=== PATIENT | female | born 1970 | race Caucasian/White ===

== ENCOUNTER 2023-09-08 14:15 | Emergency (ER) | payer OTHER ==
[2023-09-08 14:38] VITALS: BP 134/68; PULSE 93
[2023-09-08] MEDS: Acetaminophen/HYDROcodone 325-5 MG Tab PO ONE (14:39)
[2023-09-08] MEDS ORDERED: Lidocaine 2% 10 ML Amp INJECT ONE (14:47)
[2023-09-08] MEDS: ceFAZolin 1 GM Vial IM ONE (14:52)
[2023-09-08] MEDS: Lidocaine 1% 10 ML MDV INJECT ONE (14:52)
[2023-09-08] MEDS: Diphtheria,Pertussis(Acell),Tetanus Vaccine 0.5 ML Syringe IM ONE (15:48)
== END 2023-09-08 15:50 | disposition home or self-care (01) ==
LOC: VM.ED 14:15
DX: S62.634B Displaced fracture of distal phalanx of right ring finger, initial encounter for open fracture (principal); S80.211A Abrasion, right knee, initial encounter; K21.9 Gastro-esophageal reflux disease without esophagitis; Z23 Encounter for immunization; Z90.49 Acquired absence of other specified parts of digestive tract; Z79.899 Other long term (current) drug therapy; Z88.6 Allergy status to analgesic agent; Z91.048 Other nonmedicinal substance allergy status; W23.1XXA Caught, crushed, jammed, or pinched between stationary objects, initial encounter
CPT/HCPCS: 11730; 73140; 90471; 90715; 96372; 99283; A9270; J0690; J3490